=== PATIENT | female | born 1990 | race Caucasian/White ===

== ENCOUNTER 2018-01-14 23:01 | Emergency (ER) | payer BC, OTHER ==
[2018-01-15 01:59] VITALS: BP 00/00
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
== END 2018-01-15 01:49 | disposition home or self-care (01) ==
LOC: ED 23:01
DX: O71.9 Obstetric trauma, unspecified (principal); R10.9 Unspecified abdominal pain; Z3A.18 18 weeks gestation of pregnancy; Y09 Assault by unspecified means
CPT/HCPCS: 99282

== ENCOUNTER 2018-06-17 21:00 | Inpatient (IN) | payer BC ==
[2018-06-17 21:47] LABS: ABS Basophils 0 10^3/ul (0-0.2); ABS Eosinophils 0 10^3/ul (0-0.6); ABS Lymphocytes 1.7 10^3/ul (1.0-4.8); ABS Monocytes 0.5 10^3/ul (0-0.8); ABS Neutrophils 4.4 10^3/ul (1.5-7.7); ABS Nucleated RBC 0 10^3/ul; Eosinophil % 0.5 % (0-6); Hematocrit 34 % (35-47); Hemoglobin 11.7 g/dl (12.0-16.0); Lymphocyte % 25.7 % (25-47); Mean Corpuscular HGB Conc 35 g/dl (31-36); Mean Corpuscular Hemoglobin 28 pg (27-31); Mean Corpuscular Volume 79 fL (80-97); Mean Platelet Volume 8.9 fL (7.4-10.4); Nucleated Red Blood Cells % 0.1; Platelet Count 194 10^3/ul (150-450); Red Blood Count 4.28 10^6/ul (4.00-5.40); Red Cell Distribution Width 14 % (10.5-15); White Blood Count 6.7 10^3/ul (3.5-10.8)
[2018-06-17] MEDS ORDERED: OBEPIDURAL* 250 ML EPIDURAL ONE (21:59)
[2018-06-17] MEDS ORDERED: Penicillin G Potassium IV* 5,000,000 UNITS in NS 0.9% 100 ML* 100 ML IVPB ONE (22:00)
--- NOTE | 2018-06-17 22:16 | HP ---
General Information - General Information Maternal Age: 27 Grav: 2 Para: 1 SAB: 0 IEA: 0 Estimated Due Date: 06/20/18 Determined By: LMP Gestational Age in Weeks/Days: 39 4/7 Maternal Blood Type and Rh: O Positive - Results this Serology/RPR Result: Non-Reactive Rubella Result: Non-Immune HBsAg Result: Negative HIV Result: Negative GBS Culture Result: Positive Past Medical History Delivery History: Hx Uncomplicated Vaginal Delivery Pertinent Past Medical History: Non-Contributory Pertinent Past Surgical History: See Records - Tonsillectomy, [place] tooth extraction Pertinent Family History: See Records - thyroid disease - Antepartal Records Antepartal Records: Reviewed, Complicated by: - GBS positive Review of Systems Constitutional: Uncomfortable CV Complaint: No Respiratory: Shortness of Breath: No Gastrointestinal: No Nausea/Vomiting, Normal Bowel Movement Genitourinary: No Dysuria, No Bleeding, No Leaking Fluid Musculoskeletal: No Epigastric Pain, Contractions Neurological: No Headache, No Visual Changes Movement: Normal Exam Allergies/Adverse Reactions: Allergies No Known Allergies Allergy (Unverified 01/14/18 23:08) T-98.6, P-79, R-20, BP- 113/78, O2-100% Lab Values - Entire Visit: Laboratory Tests 06/17/18 06/17/18 21:28 21:28 WBC 6.7 RBC 4.28 Hgb 11.7 L Hct 34 L MCV 79 L MCH 28 MCHC 35 RDW 14 Plt Count 194 MPV 8.9 Neut % (Auto) 66.2 Lymph % (Auto) 25.7 [place] % (Auto) 7.2 H Eos % (Auto) 0.5 Baso % (Auto) 0.4 Absolute Neuts (auto) 4.4 Absolute Lymphs (auto) 1.7 Absolute Monos (auto) 0.5 Absolute Eos (auto) 0 Absolute Basos (auto) 0 Absolute Nucleated RBC 0 Nucleated RBC % 0.1 Blood Type O Positive - Measurements Height: 5 ft 7 in Weight: 72.575 kg Weight in lbs: 160.299224 Body Mass Index (BMI): 25.0 Pre- Weight: 54.431 kg Weight Gained This : 40 lbs and 0 ozs - Exam Breast: Breast Exam Deferred CVA: No CVA Tenderness Extremities: No Edema Heart: Normal Rhythm/Heart Sounds HEENT: No Significant Findings Lungs: Clear Bilaterally Rectal: Rectal Exam Deferred Reflexes: DTR 2+ Thyroid: No Thyromegaly - Abdominal Exam Abdomen Exam: Non-Tender, Fundal Height Consistent with Dates - Ultrasound/Biophysical Profile Ultrasound Status: Not Done Targeted Exam Findings See L&D Outpatient Visit Provider Note for Findings: N/A Cervical Exam: 3cm Effacement: 80% Station: 0 Presenting Part: Vertex Membrane Status: Intact Bleeding/Discharge: None EFM Findings - External Monitor Findings Baseline Heart Rate: 115 External Monitor Findings: Accelerations Present, No Pattern of Variable or Late Decelerations, Variability Moderate, Baseline Stable Contractions: Regular, Moderate, 45-90 Seconds Contraction Frequency: 2-4 minutes Assessment/Plan - Assessment 27 year old at 39 4/7 weeks gestation, GBS positive, in active labor with intact membranes and no evidence of acidemia. - Obstetrical Risk Factors Obstetrical Risk Factors: GBS Positive - Plan Plan: Antibiotic Prophylaxis, Admit - Anticipate Vaginal Delivery Plan Comment: Pt admitted to labor and delivery. IV access established and GBS prophylaxis initiated with Penicillin. Pt uncomfortable, requests epidural. Once IV fluid infusing, anesthesiologist Dr. Mckoy was notified and epidural requested. Anticipate . - Date/Time of Admission Date of Admission: 06/17/18 Time of Admission: 21:29
--- NOTE | 2018-06-17 23:38 | PN ---
Progress Note - Progress Note Date of Service: 06/17/18 SOAP: Subjective: [] Objective: [] Assessment: [] Plan: []
[2018-06-18] MEDS ORDERED: Penicillin G Potassium IV* 2,500,000 UNITS in NS 0.9% 100 ML* 100 ML IVPB SCH (02:00)
[2018-06-18] MEDS ORDERED: Oxytocin in LR* 20 UNITS/1,000 ML BAG IVPB ONE (02:12)
[2018-06-18] MEDS ORDERED: Phenylephrine IV* 40 MCG/ML 10 ML SYRINGE ONE (02:39)
[2018-06-18] MEDS ORDERED: Dibucaine 1% 28.35 GM TUBE PR PRN (02:52)
[2018-06-18] MEDS ORDERED: Witch Hazel PAD* JAR TOPICAL PRN (02:52)
[2018-06-18] MEDS ORDERED: Glycerin ADULT SUPP PR PRN (02:52)
[2018-06-18] MEDS ORDERED: Oxytocin in LR* 20 UNITS/1,000 ML BAG IVPB SCH (03:00)
--- NOTE | 2018-06-18 03:32 | PROCNOTE ---
[facility] OB: Delivery Note - Delivery A Date of : 06/18/18 Time of : 02:03 [place] Sex: Female Weight at : 3.164 kg Score 1 Minute: 9 Score 5 Minutes: 9 Gestational Age in Weeks and Days at Delivery: 39 Weeks and 5 Days Delivery Method: Spontaneous Vaginal Labor: Spontaneous Did Patient attempt ?: N/A, No Previous Amniotic Fluid: Clear Anesthesia/Analgesia: CEI for Labor Delivered By: Yuli Ward - Nursery Level of Nursery: Regular/Bedside - Perineum Perineal Injury: 1st Degree Perineal Injury Comment: w/ bilateral labial abrasions Perineal Repair: By Delivering Practioner - Events Delivery Events of Note: Pitocin Only After Delivery, Full Course of Antibiotics - Additional Delivery Notes Additional Delivery Notes: Pt admitted in active labor with intact membranes at 39 4/7 weeks gestation. Pt made good progress, and soon requested and received an epidural with effective relief of pain. Pt continued to make good progress and began to feel an urge to push. At that time, pt found to have a bulging amniotic sac. AROM performed with pt's consent to clear fluid. Soon after pt began spontaneous pushing efforts. Pt pushed effectively and after 23 minutes of pushing delivered the baby in direct OP to ROP. Shoulders followed easily with next push. placed on maternal abdomen with lusty cry, vigorous movements, and heart rate > 100. After pulsation ceased, cord clamped x2 and cut by 's father. Placenta delivered spontaneously, kristin side with trailing membranes, teased out. After delivery of placenta, Pitocin initiated at 250 cc/ hr. Bleeding was within normal limits. Inspection of the perineum revealed small first degree perineal laceration and bilateral labial laceration. Perineal laceration and right labial laceration repaired with absorbable suture resulting in good hemostasis and tissue approximation. Left labial laceration very superficial w/ good hemostasis, left unrepaired. At this time and mother are stable, . Anticipate normal course.
[2018-06-18] MEDS: Ibuprofen TAB* 600 MG PO PRN ×3 (08:05→19:51)
[2018-06-18] MEDS: Docusate CAP* 100 MG PO SCH ×3 (08:05→19:52)
[2018-06-18] MEDS: Acetaminophen TAB* 325 MG PO PRN (12:53)
[2018-06-19] MEDS: Ibuprofen TAB* 600 MG PO PRN (05:14)
[2018-06-19 06:17] LABS: ABS Basophils 0 10^3/ul (0-0.2); ABS Eosinophils 0.1 10^3/ul (0-0.6); ABS Lymphocytes 1.1 10^3/ul (1.0-4.8); ABS Monocytes 0.5 10^3/ul (0-0.8); ABS Neutrophils 5.3 10^3/ul (1.5-7.7); ABS Nucleated RBC 0 10^3/ul; Eosinophil % 0.9 % (0-6); Hematocrit 31 % (35-47); Hemoglobin 10.6 g/dl (12.0-16.0); Lymphocyte % 16.2 % (25-47); Mean Corpuscular HGB Conc 34 g/dl (31-36); Mean Corpuscular Hemoglobin 27 pg (27-31); Mean Corpuscular Volume 80 fL (80-97); Mean Platelet Volume 8.3 fL (7.4-10.4); Nucleated Red Blood Cells % 0; Platelet Count 157 10^3/ul (150-450); Red Blood Count 3.89 10^6/ul (4.00-5.40); Red Cell Distribution Width 14 % (10.5-15)
[2018-06-19 08:06] VITALS: BP 107/68
[2018-06-19] MEDS: Docusate CAP* 100 MG PO SCH (08:51)
[2018-06-19] MEDS: Acetaminophen TAB* 325 MG PO PRN (08:51)
[2018-06-19] MEDS ORDERED: Ferrous Gluconate TAB* 324 MG TAB PO SCH (09:00)
== END 2018-06-19 10:43 | disposition home or self-care (01) | DRG 560 ==
LOC: MCHOBOUT 21:00 → MCHOB 21:29
PROVIDERS: ADMIT Midwife; ATTEND Midwife
PROC: 10907ZC Drainage of Amniotic Fluid, Therapeutic from Products of Conception, Via Natural or Artificial Opening (ICD-10-PCS; principal; 2018-06-17)
PROC: 10E0XZZ Delivery of Products of Conception, External Approach (ICD-10-PCS; 2018-06-17)
PROC: 4A1HXCZ Monitoring of Products of Conception, Cardiac Rate, External Approach (ICD-10-PCS; 2018-06-17)
PROC: 0HQ9XZZ Repair Perineum Skin, External Approach (ICD-10-PCS; 2018-06-17)
PROC: 0UQMXZZ Repair Vulva, External Approach (ICD-10-PCS; 2018-06-17)
DX: O99.824 Streptococcus B carrier state complicating childbirth (principal); Z37.0 Single live birth; Z3A.39 39 weeks gestation of pregnancy; O70.0 First degree perineal laceration during delivery
CPT/HCPCS: 36415; 85025; 86850; 86900; 86901; A9270-GY; J2540